=== PATIENT | male | born 1990 | race Caucasian/White ===

== ENCOUNTER 2016-10-20 12:55 | Emergency (ER) | payer SELFPAY | END 2016-10-20 14:50 | disposition home or self-care (01) | LOC: FER 12:55 | DX: J02.0 Streptococcal pharyngitis (principal) | CPT/HCPCS: 87450; 87804; 87899; J0561 ==

== ENCOUNTER 2017-01-09 11:28 | Emergency (ER) | payer SELFPAY | END 2017-01-09 13:26 | disposition home or self-care (01) | LOC: FER 11:28 | DX: S80.01XA Contusion of right knee, initial encounter (principal); F17.210 Nicotine dependence, cigarettes, uncomplicated; W01.0XXA Fall on same level from slipping, tripping and stumbling without subsequent striking against object, initial encounter; Y92.69 Other specified industrial and construction area as the place of occurrence of the external cause; Y99.0 Civilian activity done for income or pay | CPT/HCPCS: 73564; 99283; J1885 ==